=== PATIENT | female | born 1990 | race Caucasian/White ===

== ENCOUNTER 2016-12-21 11:14 | Emergency (ER) | payer OTHER ==
[~2016-12-21] VITALS: Ht 157.5 cm; Wt 81.8 kg
[2016-12-21 11:38] VITALS: BP 129/71
--- NOTE | 2016-12-21 13:51 | NUR ---
Patient ambulated to bed 8. [employer] INTEGRATOR evaluating patient at bedside.
[2016-12-21 14:07] LABS: BASOPHILS # (AUTO) 0.2 K/uL (0.00-0.22); BASOPHILS % (AUTO) 1.2 % (0.0-2.0); EOSINOPHILS # (AUTO) 0.2 K/uL (0-0.4); EOSINOPHILS % (AUTO) 1.5 % (0.0-4.0); LYMPHOCYTES # (AUTO) 1.8 K/uL (2.5-16.5); LYMPHOCYTES % (AUTO) 13.5 % (20.5-51.1); MEAN CORPUSCULAR HEMOGLOBIN 20 pg (27-31); MEAN CORPUSCULAR HGB CONC 31 g/dL (33-37); MEAN CORPUSCULAR VOLUME 66 fL (80-94); MONOCYTES # (AUTO) 0.5 K/uL (0.8-1.0); MONOCYTES % (AUTO) 4.1 % (1.7-9.3); NEUTROPHILS # (AUTO) 10.5 K/uL (1.8-7.7); NEUTROPHILS % (AUTO) 79.7 % (42.2-75.2); PLATELET COUNT (AUTO) 310 K/uL (140-450); RED BLOOD CELL COUNT(AUTO) 5.01 MIL/uL (4.20-5.40); RED CELL DISTRIBUTION WIDTH 16.5 % (11.6-13.7); WHITE BLOOD COUNT (AUTO) 13.2 K/uL (4.8-10.8)
--- NOTE | 2016-12-21 14:15 | NUR ---
Pelvic exam performed by Dr. Neff with myself at bedside for entire examination. Patient tolerated procedure well. Patient assisted to position of comfort after examination.
--- NOTE | 2016-12-21 14:22 | NUR ---
26/F c/o lower abdominal cramping and vaginal bleeding that started this morning. Pt states "I took a test last week." No care at this time. Patient c/o 2/10 cramping. Patient is approximately 6 weeks, LMP 11/09/16. G-2 P-1. Pt is AOX4, denies N/V/D. VSS. Pt placed in a gown. No distress noted.
[2016-12-21 14:23] LABS: INR 1.1 (0.8-1.2); PARTIAL THROMBOPLASTIN TIME 23.2 secs (22-35.6); PROTHROMBIN TIME 10.9 secs (10.8-13.4)
[2016-12-21 14:28] LABS: ALBUMIN 3.2 g/dL (3.4-5.0); ANION GAP 13.2 (8-16); CARBON DIOXIDE 24.4 mmol/L (21-32); CREATININE 0.6 mg/dL (0.6-1.3); POTASSIUM 3.6 mmol/L (3.5-5.1); TOTAL PROTEIN, SERUM 7.3 g/dL (6.4-8.2)
--- NOTE | 2016-12-21 14:44 | NUR ---
Ultrasound at bedside.
[2016-12-21 14:47] LABS: TOTAL BILIRUBIN 0.3 mg/dL (0.0-1.0)
--- NOTE | 2016-12-21 15:26 | NUR ---
Patient appears to be resting comfortably in bed. Pt placed in position of comfort. Warm blanket provided. No distress noted. VSS.
[2016-12-21 16:38] VITALS: BP 111/66
--- NOTE | 2016-12-21 16:40 | NUR ---
Patient discharged with v/s stable. Written and verbal after care instructions given and explained. Patient verbalized understanding. Ambulatory with steady gait. All questions addressed prior to discharge. Advised to follow up with PMD.
== END 2016-12-21 16:30 | disposition home or self-care (01) ==
LOC: MED 11:14
DX: O20.9 Hemorrhage in early pregnancy, unspecified (principal); O23.591 Infection of other part of genital tract in pregnancy, first trimester; Z3A.01 Less than 8 weeks gestation of pregnancy; Z88.1 Allergy status to other antibiotic agents; K21.9 Gastro-esophageal reflux disease without esophagitis
CPT/HCPCS: 36415; 76801; 80053; 81025; 84702; 85025; 85610; 85730; 93005; 99285; Q0092; 76817; 81002

== ENCOUNTER 2021-11-10 21:41 | Emergency (ER) | payer OTHER ==
[~2021-11-10] VITALS: Ht 160 cm; Wt 81.6 kg
[2021-11-10 21:43] VITALS: BP 138/82
--- NOTE | 2021-11-10 21:43 | NUR ---
TO BED AMBULATORY
[2021-11-10] MEDS ORDERED: ACETAMINOPHEN EXTRA STRENGTH 500 MG TAB PO ONE (22:10)
--- NOTE | 2021-11-10 22:28 | NUR ---
PATIENT PRESENTS TO ED WITH ABDOMINAL PAIN . PT STATES ABDOMINAL PAIN MODERATE 7/10 WITH 500 TYLENOL HELPING TO RELIEVE PAIN AT HOME. LOWER BACK PAIN FEELS SEVERE 9/10 WITH NO MEDICATION HELPING. PAIN MADE WORSE IN ABDOMEN AND LOWER BACK DURING MOVEMENT. DENIES N/V/D; SKIN IS PINK/WARM/DRY; AAOX4 WITH EVEN AND STEADY GAIT; LUNGS CLEAR BL; HR EVEN AND REGULAR; PT DENIES ANY FEVER, CP, SOB, OR COUGH AT THIS TIME; VSS; PATIENT POSITIONED FOR COMFORT; HOB ELEVATED; BEDRAILS UP X2; BED DOWN. ER MD MADE AWARE OF PT STATUS.
[2021-11-10 22:35] LABS: BASOPHILS % (AUTO) 0.5 % (0.0-2.0); EOSINOPHILS # (AUTO) 0.2 K/uL (0-0.4); EOSINOPHILS % (AUTO) 2.4 % (0.0-4.0); HEMATOCRIT 26.3 % (36-48); LYMPHOCYTES # (AUTO) 2.8 K/uL (2.5-16.5); LYMPHOCYTES % (AUTO) 31.7 % (20.5-51.1); MEAN CORPUSCULAR HEMOGLOBIN 18 pg (27-31); MEAN CORPUSCULAR HGB CONC 30 g/dL (33-37); MEAN CORPUSCULAR VOLUME 59.4 fL (80-94); MONOCYTES # (AUTO) 0.7 K/uL (0.8-1.0); MONOCYTES % (AUTO) 8.2 % (1.7-9.3); NEUTROPHILS # (AUTO) 5.1 K/uL (1.8-7.7); NEUTROPHILS % (AUTO) 57.2 % (42.2-75.2); PLATELET COUNT (AUTO) 423 K/uL (140-450); RED BLOOD CELL COUNT(AUTO) 4.43 MIL/uL (4.20-5.40); RED CELL DISTRIBUTION WIDTH 19.1 % (11.6-13.7); WHITE BLOOD COUNT (AUTO) 8.9 K/uL (4.8-10.8)
[2021-11-10 22:50] LABS: ALBUMIN 3.5 g/dL (3.4-5.0); CREATININE 0.5 mg/dL (0.6-1.3); TOTAL BILIRUBIN 0.3 mg/dL (0.0-1.0)
[2021-11-10 22:55] LABS: POTASSIUM 3.3 mmol/L (3.5-5.1)
[2021-11-11 01:19] VITALS: BP 105/51
== END 2021-11-11 01:23 | disposition home or self-care (01) ==
LOC: MED 21:41
DX: O20.0 Threatened abortion (principal); K21.9 Gastro-esophageal reflux disease without esophagitis; Z88.1 Allergy status to other antibiotic agents
CPT/HCPCS: 36415; 76801; 80053; 81002; 81025; 84702; 84703; 85025; 86900; 86901; 99284; Q0092

== ENCOUNTER 2021-11-20 05:05 | Emergency (ER) | payer OTHER ==
[~2021-11-20] VITALS: Ht 160 cm; Wt 86.2 kg
[2021-11-20 05:11] VITALS: BP 135/67
--- NOTE | 2021-11-20 05:16 | NUR ---
Patient ambulated to bed 2.
--- NOTE | 2021-11-20 05:30 | NUR ---
31 yo f bibs w C/O vaginal bleeding x today. Patient reported, had vaginal bleeding (spotting 1 week), today clot blood came out. LMP September 20, 2021, Preg 8 weeks, [id number] PMHx: DENIES
[2021-11-20 05:43] LABS: APPEARANCE,URINE SL CLOUDY (CLEAR); BILIRUBIN,URINE NEGATIVE (NEGATIVE); BLOOD, URINE 3+ (NEGATIVE); COLOR,URINE RED (YELLOW); LEUKOCYTE ESTERASE ,URINE TRACE (NEGATIVE); NITRITE, URINE NEGATIVE (NEGATIVE); UGLUCOSE NEGATIVE (NEGATIVE)
[2021-11-20 05:45] LABS: RBC,URINE TOO NUMEROUS TO COUN /HPF (0-5); WBC,URINE 0-5 /HPF (0-5)
[2021-11-20 06:20] LABS: BASOPHILS % (AUTO) 0.4 % (0.0-2.0); EOSINOPHILS # (AUTO) 0.2 K/uL (0-0.4); EOSINOPHILS % (AUTO) 2.1 % (0.0-4.0); HEMATOCRIT 26.3 % (36-48); LYMPHOCYTES # (AUTO) 2.1 K/uL (2.5-16.5); LYMPHOCYTES % (AUTO) 25.2 % (20.5-51.1); MEAN CORPUSCULAR HEMOGLOBIN 18 pg (27-31); MEAN CORPUSCULAR HGB CONC 30 g/dL (33-37); MEAN CORPUSCULAR VOLUME 59.6 fL (80-94); MONOCYTES # (AUTO) 0.7 K/uL (0.8-1.0); NEUTROPHILS # (AUTO) 5.4 K/uL (1.8-7.7); NEUTROPHILS % (AUTO) 64.3 % (42.2-75.2); PLATELET COUNT (AUTO) 419 K/uL (140-450); RED BLOOD CELL COUNT(AUTO) 4.41 MIL/uL (4.20-5.40); RED CELL DISTRIBUTION WIDTH 18.8 % (11.6-13.7); WHITE BLOOD COUNT (AUTO) 8.3 K/uL (4.8-10.8)
--- NOTE | 2021-11-20 06:55 | NUR ---
US AT BEDSIDE
--- NOTE | 2021-11-20 07:00 | NUR ---
Patient appears to be resting comfortably in bed. Vital Signs within normal limits. Respirations even and unlabored.
--- NOTE | 2021-11-20 07:21 | NUR ---
Pt report given to TASHA. Transfer of care at this time.
[2021-11-20 08:15] VITALS: BP 131/65
--- NOTE | 2021-11-20 08:21 | NUR ---
Patient discharged with v/s stable. Written and verbal after care instructions given and explained. Patient alert, oriented and verbalized understanding of instructions. Ambulatory with steady gait. All questions addressed prior to discharge. ID band removed. Patient advised to follow up with PMD. No rx. Patient educated on indication of medication including possible reaction and side effects. Opportunity to ask questions provided and answered.
== END 2021-11-20 08:12 | disposition home or self-care (01) ==
LOC: MED 05:05
DX: O03.9 Complete or unspecified spontaneous abortion without complication (principal); K21.9 Gastro-esophageal reflux disease without esophagitis; Z88.1 Allergy status to other antibiotic agents
CPT/HCPCS: 36415; 76817; 81001; 84702; 85025; 86900; 86901; 99284; Q0092

== ENCOUNTER 2022-04-16 20:13 | Emergency (ER) | payer OTHER ==
[~2022-04-16] VITALS: Ht 160 cm; Wt 86.2 kg
[2022-04-16 20:24] VITALS: BP 126/70
--- NOTE | 2022-04-16 20:28 | NUR ---
TO LOBBY A/W BED AMBULATORY
--- NOTE | 2022-04-16 21:16 | NUR ---
PT AMBULATORY TO BED 1
[2022-04-16] MEDS ORDERED: BENZ-300 PO (21:45)
[2022-04-16] MEDS ORDERED: MUC600 PO (21:45)
--- NOTE | 2022-04-16 21:52 | NUR ---
Patient sitting on bed, A/Ox4, chest rise and fall symmetrical, no s/s of distress
[2022-04-16 22:19] VITALS: BP 119/72
== END 2022-04-16 22:14 | disposition home or self-care (01) ==
LOC: MED 20:13
DX: B34.9 Viral infection, unspecified (principal); Z20.822 Contact with and (suspected) exposure to COVID-19; K21.9 Gastro-esophageal reflux disease without esophagitis; Z88.1 Allergy status to other antibiotic agents; Z79.899 Other long term (current) drug therapy
CPT/HCPCS: 87635; 99283; C9803

== ENCOUNTER 2022-06-24 19:57 | Emergency (ER) | payer OTHER ==
[~2022-06-24] VITALS: Ht 160 cm; Wt 88.5 kg
[~2022-06-24 19:57] MED LIST: BENZ-300 PO; MUC600 PO
[2022-06-24 20:00] VITALS: BP 140/89
--- NOTE | 2022-06-24 20:04 | NUR ---
TO LOBBY A/W BED AMBULATORY
[2022-06-24] MEDS ORDERED: ACET-10509 PO (20:54)
== END 2022-06-24 21:12 | disposition home or self-care (01) ==
LOC: MED 19:57
DX: O26.891 Other specified pregnancy related conditions, first trimester (principal); R51.9 Headache, unspecified; K21.9 Gastro-esophageal reflux disease without esophagitis; Z3A.01 Less than 8 weeks gestation of pregnancy; Z88.8 Allergy status to other drugs, medicaments and biological substances
CPT/HCPCS: 99282; 99284

== ENCOUNTER 2022-10-01 02:48 | Inpatient (IN) | payer OTHER ==
[~2022-10-01] VITALS: Ht 160 cm; Wt 89.8 kg
[~2022-10-01 02:48] MED LIST changes: +ACET-10509 PO
[2022-10-01] MEDS ORDERED: PRETAB PO (03:29)
[2022-10-01] MEDS ORDERED: OSC500 PO (03:29)
[2022-10-01] MEDS ORDERED: FERR325E14 PO (03:29)
[2022-10-01 03:31] VITALS: BP 119/65
[2022-10-01] MEDS ORDERED: MORPHINE SULFATE 4 MG/ML SYR IVP PRN (03:45)
[2022-10-01] MEDS ORDERED: NACL 0.9% 1,000 ML IV ONE (03:45)
[2022-10-01] MEDS ORDERED: cefTRIAXone 1,000 MG VIAL ONE (03:58)
[2022-10-01] MEDS: NACL 0.9% 1,000 ML IV SCH ×3 (05:50→23:55)
[2022-10-01] MEDS: MORPHINE SULFATE 4 MG/ML SYR IVP PRN ×4 (07:53→22:46)
--- NOTE | 2022-10-01 09:08 | NUR ---
PATIENT HAS BEEN SCREENED AND CATEGORIZED LOW NUTRITION RISK. PATIENT WILL BE SEEN WITHIN 7 DAYS OF ADMISSION. 10/01/22-10/08/22 REVIEWED BY NAYELI [address]
[2022-10-02] MEDS: MORPHINE SULFATE 4 MG/ML SYR IVP PRN ×2 (01:48→12:55)
[2022-10-02] MEDS ORDERED: ACETAMINOPHEN 325 MG TAB PO PRN (07:45)
[2022-10-02] MEDS: NACL 0.9% 1,000 ML IV SCH (08:59)
[2022-10-02 09:11] LABS: BASOPHILS % (AUTO) 0.2 % (0.0-2.0); EOSINOPHILS # (AUTO) 0.2 K/uL (0-0.4); EOSINOPHILS % (AUTO) 2.2 % (0.0-4.0); HEMATOCRIT 34.2 % (36-48); HEMOGLOBIN 11.8 g/dL (12.0-16.0); LYMPHOCYTES # (AUTO) 1.7 K/uL (2.5-16.5); LYMPHOCYTES % (AUTO) 19.8 % (20.5-51.1); MEAN CORPUSCULAR HEMOGLOBIN 29 pg (27-31); MEAN CORPUSCULAR HGB CONC 34 g/dL (33-37); MEAN CORPUSCULAR VOLUME 83.5 fL (80-94); MONOCYTES # (AUTO) 0.5 K/uL (0.8-1.0); MONOCYTES % (AUTO) 6.1 % (1.7-9.3); NEUTROPHILS # (AUTO) 6.1 K/uL (1.8-7.7); NEUTROPHILS % (AUTO) 71.7 % (42.2-75.2); PLATELET COUNT (AUTO) 226 K/uL (140-450); RED CELL DISTRIBUTION WIDTH 15.3 % (11.6-13.7); WHITE BLOOD COUNT (AUTO) 8.4 K/uL (4.8-10.8)
[2022-10-02 09:23] LABS: ALBUMIN 2.3 g/dL (3.4-5.0); ANION GAP 10.6 (8-16); CARBON DIOXIDE 23.8 mmol/L (21-32); CREATININE 0.4 mg/dL (0.6-1.3); POTASSIUM 3.4 mmol/L (3.5-5.1); TOTAL BILIRUBIN 0.3 mg/dL (0.0-1.0)
[2022-10-02 09:46] LABS: APPEARANCE,URINE CLEAR (CLEAR); BILIRUBIN,URINE NEGATIVE (NEGATIVE); BLOOD, URINE NEGATIVE (NEGATIVE); COLOR,URINE YELLOW (YELLOW); LEUKOCYTE ESTERASE ,URINE 3+ (NEGATIVE); NITRITE, URINE NEGATIVE (NEGATIVE); UGLUCOSE NEGATIVE (NEGATIVE)
== END 2022-10-02 15:15 | disposition home or self-care (01) | DRG 566 ==
LOC: MLD 02:48 → OBSVTOIN 08:15
PROVIDERS: ADMIT Obstetrics & Gynecology; ATTEND Obstetrics & Gynecology
DX: O23.02 Infections of kidney in pregnancy, second trimester (principal); Z20.822 Contact with and (suspected) exposure to COVID-19; Z3A.24 24 weeks gestation of pregnancy
CPT/HCPCS: 36415; 76805; 80053; 81001; 85025; 87086; J0690; J0696; J2270; J7060; Q0092